=== PATIENT | female | born 1975 | race American Indian/Alaskan Native ===

== ENCOUNTER 2020-06-07 13:21 | Outpatient (CLI) | payer OTHER ==
--- NOTE | 2020-06-07 18:05 | Mammography Report ---
DIGITAL SCREENING MAMMOGRAM WITH CAD, 06/07/2020 CLINICAL INFORMATION / INDICATION: Routine screening mammography. TECHNIQUE: Digital bilateral 2D mammography was obtained in the craniocaudal and mediolateral obliqu e projections. This examination was interpreted with the benefit of Computer-Aided Detection analysis . COMPARISON: 06/06/2019, 07/30/2017 FINDINGS: Breast Density: There are scattered areas of fibroglandular density. No dominant mass, suspicious calcifications, or architectural distortion in either breast. Postsurgical scar is present in the left breast, 12:00. Postsurgical scars also noted in the periareo lar right breast. Otherwise, no significant additional interval change noted. IMPRESSION: No mammographic evidence of malignancy. Follow up recommendation: Routine yearly BI-RADS Category 2: Benign. A "normal" or negative report should not discourage follow up or biopsy of a clinically significant f inding. A written summary of these findings will be mailed to the patient. The patient will be entered into a mammography reporting system which will generate a reminder letter for the patient's next appointmen t at the appropriate interval. The [employer] recommends yearly mammograms starting at age 40 and continuing as l jackelin as a woman is in good health. Breast MRI is recommended for women with an approximate 20-25% or greater lifetime risk of breast cancer, including women with a strong family history of breast or ova iam cancer or who have been treated for Hodgkin's disease. Signer Name: Kirstin Reeves MD Signed: 06/07/2020 6:01 PM Workstation Name: [email or web address]
== END 2020-06-07 13:22 | disposition home or self-care (01) ==
LOC: SPVWC 13:21
PROVIDERS: ATTEND Surgery
DX: Z12.31 Encounter for screening mammogram for malignant neoplasm of breast (principal); N64.89 Other specified disorders of breast
CPT/HCPCS: 77067

== ENCOUNTER 2021-02-06 09:57 | Outpatient (CLI) | payer OTHER ==
--- NOTE | 2021-02-06 12:42 | Ultrasound Report ---
BILATERAL DIGITAL DIAGNOSTIC MAMMOGRAM WITH CAD CONVENTIONAL, 02/06/2021 RIGHT LIMITED BREAST ULTRASOUND CLINICAL INFORMATION / INDICATION: History of left breast cancer with lumpectomy, right palpable abno rmality TECHNIQUE: Digital bilateral mammographic imaging was performed. Spot compression views were obtained . Limited ultrasound was performed. This examination was interpreted with the benefit of Computer-Aid ed Detection (CAD) analysis. COMPARISON: Bilateral mammogram 06/07/2020 FINDINGS: Breast Density: There are scattered areas of fibroglandular density. MAMMOGRAPHIC FINDINGS: Bilateral surgical changes are again seen. No significant abnormalities are se en in the area of right palpable concern. ULTRASOUND FINDINGS: Targeted ultrasound evaluation was performed of the area of interest. No abnorma lities are seen. IMPRESSION: No mammographic or sonographic evidence of malignancy. No abnormalities are seen in the a sarah of right palpable concern. Follow up recommendation: Clinical follow-up of right palpable concern BI-RADS Category 2: Benign. A "normal" or negative report should not discourage follow up or biopsy of a clinically significant f inding. A written summary of these findings will be mailed to the patient. The patient will be entered into a mammography reporting system which will generate a reminder letter for the patient's next appointmen t at the appropriate interval. According to the [employer], yearly mammograms are recommended starting at age 40 and continuing as long as a woman is in good health. Breast MRI is recommended for women with an finn roximately 20-25% or greater lifetime risk of breast cancer, including women with a strong family his tory of breast or ovarian cancer and women who have been treated for Hodgkin's disease. Signer Name: Tarun Grant MD Signed: 02/06/2021 12:37 PM Workstation Name: [id number]
== END 2021-02-06 09:58 | disposition home or self-care (01) ==
LOC: SPVWC 09:57
PROVIDERS: ATTEND Internal Medicine Hematology & Oncology
DX: N63.10 Unspecified lump in the right breast, unspecified quadrant (principal); N63.20 Unspecified lump in the left breast, unspecified quadrant; R92.8 Other abnormal and inconclusive findings on diagnostic imaging of breast; D05.00 Lobular carcinoma in situ of unspecified breast; D36.9 Benign neoplasm, unspecified site; N63.0 Unspecified lump in unspecified breast
CPT/HCPCS: 77066

== ENCOUNTER 2021-02-12 13:21 | Outpatient (CLI) | payer OTHER ==
--- NOTE | 2021-02-18 14:51 | Magnetic Resonance Report ---
MRI BREAST BILATERAL WITH AND WITHOUT CONTRAST, 02/16/2021 CLINICAL INFORMATION / INDICATION: HIGH RISK BREAST CA D05.00/ D36.9. Right breast lump. TECHNIQUE: Axial T1 and T2-weighted fat sat images were obtained precontrast. 18 cc Clariscan contras t was injected intravenously and serial axial T1 weighted images with fat saturation were obtained. 3 -D MIP projections, kinetic analysis, and subtraction imaging were utilized to evaluate. A dedicated 8-channel breast coil was used for image acquisition. COMPARISON: Right breast ultrasound and diagnostic bilateral mammogram from 02/06/2021. FINDINGS: BREAST DENSITY: Scattered areas of fibroglandular density. BACKGROUND ENHANCEMENT: Low level background enhancement within both breasts. RIGHT BREAST: No dominant mass or suspicious area of enhancement in the right breast. Scarring is not ed anteriorly adjacent to the nipple. LEFT BREAST: No dominant mass or suspicious area of enhancement in the left breast. Postoperative meenu nges are seen in the 12:00 position middle depth. AXILLAE: No pathologically enlarged axillary lymph nodes. ADDITIONAL FINDINGS: Limited imaging of the thorax and upper abdomen demonstrates no focal abnormalit y. IMPRESSION: 1. No MRI evidence of malignancy. Follow up recommendation: Back to schedule. BI-RADS Category 2: Benign. Signer Name: Brendon Becerra MD Signed: 02/18/2021 2:46 PM Workstation Name: [email or web address]
== END 2021-02-12 13:22 | disposition home or self-care (01) ==
LOC: SPVIMAG 13:21
PROVIDERS: ATTEND Internal Medicine Hematology & Oncology
DX: D05.00 Lobular carcinoma in situ of unspecified breast (principal); D36.9 Benign neoplasm, unspecified site
CPT/HCPCS: A9575; C8908; 77049